=== PATIENT | male | born 1980 | race African-American/Black ===

== ENCOUNTER 2020-01-26 20:57 | Emergency (ER) | payer MEDICARE, MEDICAID ==
[~2020-01-26] VITALS: Ht 190.5 cm; Wt 96.2 kg
[2020-01-26 21:08] VITALS: BP 115/73
[2020-01-26] MEDS ORDERED: Erythromycin Opth Ointment 1gm RIGHT EYE STA (21:21)
[2020-01-26] MEDS ORDERED: ERYTHROMYCIN3.5 GM RIGHT EYE (21:24)
[2020-01-26 21:46] VITALS: BP 115/73
--- NOTE | 2020-01-26 22:35 | Emergency Room Report ---
History of Present Illness General Chief Complaint: Behavioral Complaint Source: Patient Present Illness HPI 39-year-old homeless male asking for food and also complaining of right eye erythema for 1 year. Patient denies scratching the eye or foreign body sensation. States that he occasionally gets discharge from the eye. No other complaints. Does not take medications. Refusing to answer questions regarding whether he drinks alcohol or uses drugs. Allergies: Coded Allergies: No Known Allergies (Unverified , 01/26/20) COVID-19 Screening Contact w/high risk pt: No Experienced COVID-19 symptoms?: No COVID-19 Testing performed [employer] ANALYST: No Nursing Documentation-[facility] Past Medical History: No Stated History Review of Systems All Other Systems: negative except mentioned in HPI Physical Exam Vital Signs Date Time Temp Pulse Resp B/P (MAP) Pulse Ox O2 Delivery O2 Flow Rate FiO2 01/26/20 20:59 97.2 86 21 115/73 (87) 96 Room Air Sp02 EP Interpretation: reviewed, normal General Appearance: no apparent distress, alert, non-toxic Head: normocephalic, atraumatic Eyes: bilateral eye PERRL, bilateral eye other - Conjunctival erythema of the right eye diffusely. No active discharge. Pupils equal and reactive bilaterally ENT: hearing grossly normal, normal pharynx, no angioedema, normal voice Neck: full range of motion, supple/symm/no masses Neurologic: alert, motor strength/tone normal, sensory intact, responsive, speech normal Psychiatric: judgement/insight normal, memory normal, mood/affect normal, no suicidal/homicidal ideation Lymphatic: no adenopathy Medical Decision Making Diagnostic Impression: Primary Impression: Conjunctivitis ER Course 39-year-old male here with right eye conjunctival erythema and mild discharge. Patient clinically appeared to have conjunctivitis. He was refusing fluorescein staining and was asking for food. Patient was given a sandwich and prescription for erythromycin eyedrops. We will follow-up with the primary care physician. Discharged in stable condition. Last Vital Signs Date Time Temp Pulse Resp B/P (MAP) Pulse Ox O2 Delivery O2 Flow Rate FiO2 01/26/20 21:46 97.2 21 115/73 96 Room Air 01/26/20 21:08 86 Disposition: HOME, SELF-CARE Condition: Stable Scripts Erythromycin Base (ERYTHROMYCIN*) 3.5 Gm Oint...g. 1 APPLIC RIGHT EYE BID, #3.5 GM 0 Refills Prov: Santo Stein M.D. 01/26/20 Referrals: [facility] Steve Mahoney. [facility] Patient Instructions: Bacterial Conjunctivitis Santo Stein M.D. Jan 26, 2020 22:35
== END 2020-01-26 21:50 | disposition home or self-care (01) ==
LOC: EMR 21:15
DX: H10.9 Unspecified conjunctivitis (principal)
CPT/HCPCS: 99282